=== PATIENT | female | born 1995 | race Caucasian/White ===

== ENCOUNTER 2017-04-16 10:05 | Emergency (ER) | payer OTHER ==
[~2017-04-16] VITALS: Ht 147.3 cm; Wt 45.0 kg
[~2017-04-16 10:05] MED LIST: CLON-429 PO; LEVE-5 PO; ONDA4TAB8 PO
[2017-04-16 10:08] VITALS: Ht 147.3 cm; Wt 45.0 kg
[2017-04-16] MEDS ORDERED: KETOROLAC 30 MG INJ IV STA (10:49)
[2017-04-16] MEDS ORDERED: SOD CHLORIDE 0.9% 1,000 ML IV STA (10:49)
[2017-04-16 11:14] LABS: ADD SCAN DIFF NO
[2017-04-16 11:18] LABS: BASOPHILS % 0.2 % (0.0-2.0); EOSINOPHILS # 0.1 10^3/ul (0.0-0.5); EOSINOPHILS % 0.4 % (0.0-7.0); HEMATOCRIT 40.5 % (37.0-47.0); LYMPHOCYTES # 1.2 10^3/ul (0.8-2.9); LYMPHOCYTES % 7.7 % (15.0-51.0); MEAN CORPUSCULAR HEMOGLOBIN 30.7 pg (29.0-33.0); MEAN CORPUSCULAR HGB CONC 34.6 g/dl (32.0-37.0); MEAN CORPUSCULAR VOLUME 88.8 fl (82.0-101.0); MEAN PLATELET VOLUME 9.2 fl (7.4-10.4); MONOCYTE # 0.9 10^3/ul (0.3-0.9); MONOCYTES % 5.6 % (0.0-11.0); NEUTROPHIL # 13.7 10^3/ul (1.6-7.5); NEUTROPHILS % 85.4 % (39.0-77.0); PLATELET COUNT 176 10^3/UL (140-415); RED BLOOD COUNT 4.56 10^6/ul (4.20-5.40); RED CELL DISTRIBUTION WIDTH 11.8 % (11.5-14.5); WHITE BLOOD COUNT 16.1 10^3/ul (4.8-10.8)
[2017-04-16 11:19] LABS: ADD UMIC YES; URINE BILIRUBIN (Dip) NEGATIVE (NEGATIVE); URINE BLOOD (Dip) NEGATIVE (NEGATIVE); URINE COLOR LT. YELLOW (YELLOW); URINE GLUCOSE (Dip) NEGATIVE (NEGATIVE); URINE KETONES (Dip) NEGATIVE (NEGATIVE); URINE LEUKOCYTE ESTERASE (Dip) 2+ (NEGATIVE); URINE NITRITE (Dip) NEGATIVE (NEGATIVE); URINE TOTAL PROTEIN (Dip) NEGATIVE (NEGATIVE); URINE UROBILINOGEN (Dip) 0.2 E.U./dL (0.1-1.0)
[2017-04-16 11:31] LABS: URINE RBCS 0-2 /HPF (0)
[2017-04-16 11:35] LABS: ALBUMIN 4.2 g/dl (3.3-4.9); ALBUMIN/GLOBULIN RATIO 1.5; BILIRUBIN,INDIRECT 0.1 mg/dl (0-1.1); BILIRUBIN,TOTAL 0.1 mg/dl (0.2-1.3); CALCIUM 8.5 mg/dl (8.4-10.2); CREATININE 0.83 mg/dl (0.44-1.00); POTASSIUM 4.1 mmol/L (3.5-5.1)
[2017-04-16 11:40] LABS: INR 1.12; PROTIME 14.4 Sec (12.2-14.2); PT RATIO 1.1
--- NOTE | 2017-04-16 12:02 | RADRPT ---
PROCEDURE: Complete abdominal ultrasound. CLINICAL INDICATION: Abdominal pain TECHNIQUE: Corona scale and color doppler ultrasound images of the abdomen. COMPARISON: None FINDINGS: Pancreas: Visualized portions appear of normal echogenicity, no focal lesions. Liver: Morphology: The right lobe of the liver is elongated measuring up to 16.2 cm which may reflect Jazmine del's lobe configuration. Echogenicity: Normal. Focal lesions: None. Main portal vein: Patent with hepatopetal flow. Biliary System: Normal appearing gallbladder wall. No gallstones seen. No intrahepatic biliary dilatation. Common bile duct diameter: 3.1 mm Kidneys: Right length: 8.5 cm. Right renal cortical thickness is preserved. Left length: 8.9 cm. Left renal cortical thickness is preserved. Normal echogenicity. No hydronephrosis. No renal calculi. No focal renal lesions. Spleen: Normal in size, no focal lesions. No free fluid identified. Normal caliber of the partially visualized aorta. IMPRESSION: Normal gallbladder without gallstones. Both kidneys are mildly small in size which may relate to small body habitus. Otherwise normal examination. RPTAT: AADD .Sanjay Nguyen MD, MD Date Time Electronically viewed and signed by .Sanjay Nguyen MD, on 04/16/2017 12:01 .B/
[2017-04-16 12:05] LABS: PARTIAL THROMBOPLASTIN TIME 28.5 Sec (25.0-35.0)
[2017-04-16] MEDS ORDERED: predniSONE 20 MG TAB PO ONE (12:30)
[2017-04-16] MEDS ORDERED: morphine 2 MG INJ IV ONE (13:00)
[2017-04-16] MEDS ORDERED: CEFTRIAXONE 1 GM/50 ML (PMX) 50 ML IVPB ONE (13:00)
[2017-04-16] MEDS ORDERED: CYCL-319 PO (13:05)
[2017-04-16] MEDS ORDERED: CEPH-443 PO (13:06)
[2017-04-16] MEDS ORDERED: NAPR-260 PO (13:06)
[2017-04-16 13:31] VITALS: BP 113/45; PULSE 70; RESP 18; TEMP 97.9
--- NOTE | 2017-04-16 15:29 | ERD ---
ER Documentation Chief Complaint Date/Time DATE: 04/16/17 TIME: 15:24 Chief Complaint ap intermittent since friday, also swellingh lymph nodes? HPI This patient is a 22-year-old female with past medical history of mono, endometriosis and epilepsy presenting to the emergency department for right- sided cervical lymph node pain and right upper quadrant abdominal pain which began 2 days ago. Patient also reports loss of appetite. The patient has past surgical history of appendectomy. Symptoms are constant and worsening. No other symptoms to report currently. ROS All systems reviewed and are negative except as per history of present illness. Medications Home Meds Active Scripts Naproxen* (Naprosyn*) 500 Mg Tablet, 500 MG PO BID Y for PAIN AND/OR INFLAMMATION, #30 TAB Prov:SANJAY KHAN PA-C 04/16/17 Cephalexin* (Keflex*) 500 Mg Capsule, 500 MG PO BID for 7 Days, #14 CAP Prov:SANJAY KHAN PA-C 04/16/17 Cyclobenzaprine Hcl* (Cyclobenzaprine Hcl*) 10 Mg Tablet, 10 MG PO TID, #15 TAB Prov:SANJAY KHAN PA-C 04/16/17 Ondansetron Hcl* (Zofran*) 4 Mg Tablet, 4 MG PO Q6H for NAUSEA AND/OR VOMITING, #12 TAB Prov:POLLO LOPEZ MD 04/03/16 Reported Medications Levetiracetam* (Keppra*) Unknown Strength Tablet, PO BID, TAB 08/07/16 Clonazepam* (Klonopin*) Unknown Strength Tab, PO Q8, TAB 08/07/16 Allergies Allergies: Coded Allergies: No Known Allergy (Unverified , 04/03/16) PMhx/Soc History of Surgery: Yes (right knee surgery, appendectomy, exploratory lap for endometriosis) Anesthesia Reaction: No Hx Neurological Disorder: Yes (seizures) Hx Respiratory Disorders: No Hx Cardiac Disorders: No Hx Psychiatric Problems: No Hx Miscellaneous Medical Probl: No Hx Alcohol Use: No Hx Substance Use: Yes (MARIJUANA) Hx Tobacco Use: No FmHx Noncontributory for chief complaint Physical Exam Vitals Vital Signs Date Time Temp Pulse Resp B/P Pulse Ox O2 Delivery O2 Flow Rate FiO2 04/16/17 13:31 97.9 70 18 113/45 100 Room Air 04/16/17 10:08 98.1 99 20 120/87 99 Physical Exam Const: Nontoxic, well-appearing female in no acute distress. Head: Atraumatic Eyes: Normal Conjunctiva ENT: Normal External Ears, Nose and Mouth. Neck: Full range of motion..~ No meningismus. Resp: Clear to auscultation bilaterally Cardio: Regular rate and rhythm, no murmurs Abd: Soft, mild tenderness to palpation of the right and left upper quadrant but no rebound tenderness or guarding. Negative Carmona sign, non distended. Normal bowel sounds Skin: No petechiae or rashes Back: No midline or flank tenderness Ext: No cyanosis, or edema Neur: Awake and alert Psych: Normal Mood and Affect Result Diagram: 04/16/17 1100 04/16/17 1100 Results 24 hrs Laboratory Tests Test 04/16/17 10:55 04/16/17 11:00 Urine Color LT. YELLOW Urine Clarity CLEAR Urine pH 6.0 Urine Specific [place] 1.010 Urine Ketones NEGATIVE Urine Nitrite NEGATIVE Urine Bilirubin NEGATIVE Urine Urobilinogen 0.2 E.U./dL Urine Leukocyte Esterase 2+ Urine Microscopic RBC 0-2/HPF Urine Microscopic WBC 5-10/HPF Urine Epithelial Cells OCCASIONAL Urine Hemoglobin NEGATIVE Urine Glucose NEGATIVE% Urine Total Protein NEGATIVE White Blood Count 16.110^3/ul Red Blood Count 4.5610^6/ul Hemoglobin 14.0g/dl Hematocrit 40.5% Mean Corpuscular Volume 88.8fl Mean Corpuscular Hemoglobin 30.7pg Mean Corpuscular Hemoglobin Concent 34.6g/dl Red Cell Distribution Width 11.8% Platelet Count 39563^3/UL Mean Platelet Volume 9.2fl Neutrophils % 85.4% Lymphocytes % 7.7% Monocytes % 5.6% Eosinophils % 0.4% Basophils % 0.2% Nucleated Red Blood Cells % 0.0/100WBC Neutrophils # 13.710^3/ul Lymphocytes # 1.210^3/ul Monocytes # 0.910^3/ul Eosinophils # 0.110^3/ul Basophils # 0.010^3/ul Nucleated Red Blood Cells # 0.010^3/ul Prothrombin Time 14.4Sec Prothrombin Time Ratio 1.1 INR International Normalized Ratio 1.12 Activated Partial Thromboplast Time 28.5Sec Sodium Level 141mmol/L Potassium Level 4.1mmol/L Chloride Level 108mmol/L Carbon Dioxide Level 26mmol/L Anion Gap 11 Blood Urea Nitrogen 8mg/dl Creatinine 0.83mg/dl Glucose Level 82mg/dl Calcium Level 8.5mg/dl Total Bilirubin 0.1mg/dl Direct Bilirubin 0.00mg/dl Indirect Bilirubin 0.1mg/dl Aspartate Amino Transf (AST/SGOT) 21IU/L Alanine Aminotransferase (ALT/SGPT) 21IU/L Alkaline Phosphatase 53IU/L Total Protein 7.0g/dl Albumin 4.2g/dl Globulin 2.80g/dl Albumin/Globulin Ratio 1.50 Lipase 16U/L Monoscreen Negative Current Medications Medications (Trade) Dose Ordered Sig/Cecilia Route PRN Reason Start Time Stop Time Status Last Admin Dose Admin Sodium Chloride (NS) 1,000 ml @ 1,000 mls/hr Q1H STAT IV 04/16/17 10:49 04/16/17 11:48 DC 04/16/17 11:02 Ketorolac Tromethamine (Toradol) 30 mg ONCE STAT IV 04/16/17 10:49 04/16/17 10:54 DC 04/16/17 11:02 Prednisone (Prednisone) 40 mg ONCE ONCE PO 04/16/17 12:30 04/16/17 12:31 DC 04/16/17 12:41 Morphine Sulfate 2 mg 2 mg ONCE ONCE IV 04/16/17 13:00 04/16/17 13:01 DC 04/16/17 13:12 Ceftriaxone Sodium (Rocephin) 50 ml @ 100 mls/hr ONCE ONCE IVPB 04/16/17 13:00 04/16/17 13:29 DC 04/16/17 13:12 [place] [id number] Radiology Main Line: [phone] DIAGNOSTIC IMAGING REPORT Patient: TANG DOMINGUEZ : 1995 Age: 22 Sex: F MR #: [id number] DOS: 04/16/17 1049 Ordering MD: SANJAY KHAN PA-C Location: [facility] Room/Bed: PROCEDURE: Complete abdominal ultrasound. CLINICAL INDICATION: Abdominal pain TECHNIQUE: Corona scale and color doppler ultrasound images of the abdomen. COMPARISON: None FINDINGS: Pancreas: Visualized portions appear of normal echogenicity, no focal lesions. Liver: Morphology: The right lobe of the liver is elongated measuring up to 16.2 cm which may reflect Evens's lobe configuration. Echogenicity: Normal. Focal lesions: None. Main portal vein: Patent with hepatopetal flow. Biliary System: Normal appearing gallbladder wall. No gallstones seen. No intrahepatic biliary dilatation. Common bile duct diameter: 3.1 mm Kidneys: Right length: 8.5 cm. Right renal cortical thickness is preserved. Left length: 8.9 cm. Left renal cortical thickness is preserved. Normal echogenicity. No hydronephrosis. No renal calculi. No focal renal lesions. Spleen: Normal in size, no focal lesions. No free fluid identified. Normal caliber of the partially visualized aorta. IMPRESSION: Normal gallbladder without gallstones. Both kidneys are mildly small in size which may relate to small body habitus. Otherwise normal examination. RPTAT: AADD .Sanjay Nguyen MD, MD Date Time Electronically viewed and signed by .Sanjay Nguyen MD, MD on 04/16/2017 12:01 .B/ Procedures/MDM EMERGENCY DEPARTMENT COURSE / MEDICAL DECISION MAKING: This is a 22-year-old female who comes to the emergency room secondary to complaints of right and left upper quadrant abdominal pain as well as cervical lymphadenopathy anteriorly on the right side. The patient was given IV Rocephin for urinary tract infection as well as: Toradol and IV morphine for pain in the department. On re-evaluation, the patient was feeling improved. Lab results reviewed and showed white blood cell count of 16.1 with left shift, but no other significant acute abnormalities. Urinalysis was concerning for urinary tract infection. Radiology: Normal gallbladder without gallstones. Both kidneys are mildly small in size which may relate to small body habitus. Otherwise normal examination. The primary diagnosis is urinary tract infection. Secondary diagnosis is neck muscle strain I have low suspicion for acute abdomen, septicemia, or other emergent conditions at this time. Discharge: I have discussed the lab results and diagnostic findings with the patient and answered any questions or concerns. The patient was discharged with a prescription for naproxen, Keflex, and Flexeril. The patient was advised to followup with their PMD in 1-2 days and to return to the Emergency Department if there are any new or worsening symptoms. The patient understood and agreed with the diagnosis, treatment and plan. The patient is stable for discharge at this time. Departure Diagnosis: Primary Impression: Urinary tract infection Additional Impression: Neck muscle strain Condition: Fair Patient Instructions: Understanding Urinary Tract Infections (UTIs), Neck Sprain/Strain Referrals: [facility] YOU HAVE RECEIVED A MEDICAL SCREENING EXAM AND THE RESULTS INDICATE THAT YOU DO NOT HAVE A CONDITION THAT REQUIRES URGENT TREATMENT IN THE EMERGENCY DEPARTMENT. FURTHER EVALUATION AND TREATMENT OF YOUR CONDITION CAN WAIT UNTIL YOU ARE SEEN IN YOUR DOCTORS OFFICE WITHIN THE NEXT 1-2 DAYS. IT IS YOUR RESPONSIBILITY TO MAKE AN APPOINTMENT FOR FOLOW-UP CARE. IF YOU HAVE A PRIMARY DOCTOR --you should call your primary doctor and schedule an appointment IF YOU DO NOT HAVE A PRIMARY DOCTOR YOU CAN CALL OUR PHYSICIAN REFERRAL HOTLINE AT IF YOU CAN NOT AFFORD TO SEE A PHYSICIAN YOU CAN CHOSE FROM THE FOLLOWING [facility] [address] [facility]. [facility] [address] [facility] [facility] [address] [facility] [facility] [address] [facility] [facility] [address] [facility]. [facility]. [address] Additional Instructions: Follow up with your PCP within the next 1-3 days for a repeat evaluation and a possible referral to a specialist, if required. Return the the emergency department immediately if symptoms worsen or change. If you have any questions regarding medications, ask your pharmacist or us before you leave. If any adverse reactions, occur while taking your medications, discontinue the treatment and return to the emergency department immediately. If any new or worsening symptoms, uncontrolled fevers, or other unexplained symptoms occur, return to the emergency department immediately. Take your medications as directed, and complete the entire course of treatment. You have been given a medicine which may cause drowsiness.DO NOT DRIVE OR OPERATE DANGEROUS MACHINERY while taking this medicine! SANJAY KHAN PA-C Apr 16, 2017 15:29
== END 2017-04-16 13:52 | disposition home or self-care (01) ==
LOC: FTE 10:05
DX: N39.0 Urinary tract infection, site not specified (principal); S16.1XXA Strain of muscle, fascia and tendon at neck level, initial encounter; X58.XXXA Exposure to other specified factors, initial encounter; Y92.9 Unspecified place or not applicable
CPT/HCPCS: 36415; 76700; 80053; 81001; 83690; 85025; 85610; 85730; 86308; 96374; 96375; 99285; J0696; J1885; J2270; J7030; J7512